=== PATIENT | female | born 1990 | race African-American/Black ===

== ENCOUNTER 2022-12-23 16:30 | Emergency (ER) | payer MEDICAID ==
[~2022-12-23] VITALS: Ht 165.1 cm; Wt 112.6 kg
[~2022-12-23 16:30] MED LIST: [UNRECOGNIZED DRUG - REMARK]
[2022-12-23 16:56] VITALS: BP 133/87; PULSE 78; RESP 20; O2SAT 100
[2022-12-23] MEDS ORDERED: IBUPROFEN 600 MG TAB PO ONE (18:00)
[2022-12-23] MEDS ORDERED: NAPR-54 PO (18:58)
[2022-12-23] MEDS ORDERED: IBUPROFEN 600 MG TAB ONE (19:15)
== END 2022-12-23 19:28 | disposition home or self-care (01) ==
LOC: MED 16:30
DX: S90.31XA Contusion of right foot, initial encounter (principal); E11.9 Type 2 diabetes mellitus without complications; Z79.1 Long term (current) use of non-steroidal anti-inflammatories (NSAID); W18.39XA Other fall on same level, initial encounter; Y92.89 Other specified places as the place of occurrence of the external cause; Y93.89 Activity, other specified; Y99.8 Other external cause status
CPT/HCPCS: 73630; 99283